=== PATIENT | female | born 1985 | race Caucasian/White ===

== ENCOUNTER 2018-03-30 00:02 | Inpatient (IN) | payer BC, OTHER ==
[2018-03-30] MEDS ORDERED: RINGER'S SOLUTION,LACTATED 1,000 ML IV ONE (00:06)
[2018-03-30] MEDS ORDERED: OXYTOCIN/DEXTROSE 5%-WATER 30 UNITS/500 ML BAG IV ONE (00:06)
[2018-03-30] MEDS ORDERED: ONDANSETRON HCL/PF 2 MG/ML VIAL IV PRN ×2 (00:06→17:00)
[2018-03-30] MEDS ORDERED: DEXTROSE 5%-LACTATED RINGERS 1,000 ML IV PRN (00:06)
[2018-03-30] MEDS: MISOPROSTOL 100 MCG TABLET VG PRN ×2 (00:48→04:53)
[2018-03-30] MEDS: VANCOMYCIN HCL 1 GM in DEXTROSE 5 % IN WATER 250 ML IV SCH ×4 (01:12→12:22)
[2018-03-30 02:04] LABS: Cocaine Ur Negative (NEGATIVE); Urine Barbiturate Negative (NEGATIVE); Urine Benzodiazepines Negative (NEGATIVE); Urine Opiates Negative (NEGATIVE); Urine PCP Negative (NEGATIVE); Urine THC Negative (NEGATIVE)
--- NOTE | 2018-03-30 09:13 | HP ---
Chief Complaint - Chief Complaint Date of Service: 03/30/18 Time of Service: 09:12 Chief Complaint: Induction of labor for GHTN History of Present Illness: 33 y at 39 weeks admitted for induction of labor due to GHTN. This complicated by anxiety/depression (no meds), h/o migraines, obesity, and GHTN. Rh negative Rubella immune GBS positive (clindamycin resistant) Medical History (Last Reviewed 03/30/18 @ 09:18 by Elan Duran DO) Anxiety Onset Date: ~2004 Depression Onset Date: ~2004 Migraine Obesity Onset Date: ~07/05/15 Rh negative, maternal Tear meniscus knee Onset Date: ~2004 Abnormal Pap smear of cervix Onset Date: ~2007 Amenorrhea Onset Date: ~07/05/15 History of wisdom tooth extraction Onset Date: ~10/2015 Spontaneous Onset Date: ~2010 Surgical History: Surgical History (Last Reviewed 03/30/18 @ 09:18 by Elan Duran DO) History of colposcopy Onset Date: ~2007 S/P ACL repair 2003, 2007, 11/2013-left knee Family History: Family History (Last Reviewed 03/30/18 @ 09:18 by Elan Duran DO) Father Cancer Colon CA, leukemia Epilepsy Mother Hypertension Fibromyalgia Grandmother CVA (cerebral vascular accident) Myocardial infarction Grandfather COPD (chronic obstructive pulmonary disease) Cancer prostate Grandmother Alzheimers disease Social History: Preferred Language [place] (Last Updated 03/24/18 @ 15:24 by Elan Duran DO) No Social History Section defined Review Of Systems (GEN) - Review of Systems Generalized/Overall Review: Present: No Symptoms Reported EENTM: Present: No Symptoms Reported Respiratory: Present: No Symptoms Reported Cardiac: Present: No Symptoms Reported Abdominal: Present: No Symptoms Reported Genitourinary: Present: No Symptoms Reported Musculoskeletal: Present: No Symptoms Reported Neurological: Present: No Symptoms Reported Skin: Present: No Symptoms Reported Endocrine: Present: No Symptoms Reported Allergies/Adverse Reactions: Allergies Allergy/AdvReac Type Severity Reaction Status Date / Time amoxicillin Allergy RASH Verified 03/25/18 13:12 carbinoxamine [From [facility]] AdvReac felt Verified 03/25/18 13:12 "loopy" house dust AdvReac upper Verified 03/25/18 13:12 respiratory mold AdvReac upper Verified 03/25/18 13:12 respiratory pseudoephedrine [From [facility]] AdvReac felt Verified 03/25/18 13:12 "loopy" Home Medications: HOME MEDICATIONS vitamin,calcium,srcilwfe-tliy-mvhfp acid tablet 1 tab PO DAILY 10/18/17 [Last Taken 03/29/18] acetaminophen 325 mg tablet 650 mg PO Q6H PRN tab 10/22/17 [Last Taken Unknown] breast pump See Dose Instructions .ROUTE .MEDSUPPLY #1 ea 03/10/18 [Last Taken Unknown] Exam - Exam Vital Signs: Vital Signs - Last Taken Temp 36.1 C 03/30/18 02:25 Pulse 86 03/30/18 02:25 Resp 18 03/30/18 02:25 BP 129/83 03/30/18 02:25 Pulse Ox 98 03/30/18 02:25 Constitutional: Present: Alert, Oriented x3, Cooperative ENT Exam: Present: hearing grossly normal Breasts: Present: Exam deferred Respiratory: Present: lungs clear, no respiratory distress Cardiovascular/Chest: Present: regular rate, rhythm Abdomen: Present: soft, nontender, no rebound tenderness, other - gravid /Rectal: Present: Other - cervix 05/09/ Extremity: Present: no pedal edema, no calf tenderness Skin Exam: Present: normal color, warm/dry, no cyanosis Neurologic: Present: alert, normal mood/affect, oriented x 3 Appearance: Present: appropriate appearance, appropriate insight Eye contact: Present: cooperative, good eye contact, normal speech Thoughts: Present: normal thought pattern Diagnostic Studies: Laboratory Results Urine Opiates Screen Negative (NEGATIVE) 03/30/18 01:30 Barbiturate Screen Negative (NEGATIVE) 03/30/18 01:30 Ur Phencyclidine Scrn Negative (NEGATIVE) 03/30/18 01:30 Urine Amphetamine Negative (NEGATIVE) 03/30/18 01:30 U Benzodiazepines Scrn Negative (NEGATIVE) 03/30/18 01:30 Urine Cocaine Screen Negative (NEGATIVE) 03/30/18 01:30 Urine Marijuana (THC) Negative (NEGATIVE) 03/30/18 01:30 Assessment/Plan - Assessment/Plan (1) Encounter for induction of labor Assessment: Admit for cytotec induction of labor. Epidural and pitocin PRN. IV Vancomycin for GBS. Problem: Acute (2) GBS carrier Problem: Acute (3) Gestational hypertension Problem: Acute Qualifiers: Trimester: third trimester Qualified Code(s): O13.3 - Gestational [-induced] hypertension without significant proteinuria, third trimester (4) Body mass index (BMI) of 40.1 to 44.9 in adult Problem: Acute
--- NOTE | 2018-03-30 09:16 | PN ---
Progess Note - Interim Date: 03/30/18 Time: 09:13 Narrative: 03/30/18 09:13 Patient rating her contractions mild Vital signs stable. Status post Cytotec 2 doses. FHT: 140 baseline, reassuring Contractions q 2-5 min Cervix: 1-2/25/-2, soft Impression: Intrauterine at 39 weeks induction of labor for gestational hypertension. GBS positive. Plan: We'll start on Pitocin. Continue IV vancomycin per GBS protocol.
--- NOTE | 2018-03-30 16:49 | PN ---
Progess Note - Interim Date: 03/30/18 Time: 16:46 Narrative: 03/30/18 16:46 Patient becoming more uncomfortable with contractions, requesting epidural Vital signs stable. Pitocin at 8 mu/min. FHT:150 baseline, reassuring with good accelerations and occasional mild variable Contractions q 2-4 min Cervix: 3/60/-2, AROM-clearImpression: Intrauterine at 39 weeks. Induction for gestational hypertension. GBS positive - status post 2 doses of IV vancomycin. Plan: Request epidural
[2018-03-30] MEDS ORDERED: NALOXONE HCL 1 MG/1 ML SYRG IV PRN (17:00)
[2018-03-30] MEDS ORDERED: fentaNYL CITRATE/PF 50 MCG/ML AMPUL IT SCH (17:00)
[2018-03-30] MEDS ORDERED: BUPIVACAINE HCL/0.9 % NACL/PF 250 ML EP PRN (17:00)
--- NOTE | 2018-03-30 17:32 | ANES ---
Anesthesia Pre Procedure Eval Vitals/Labs: Last Vital Signs Temp 36.1 C 03/30/18 02:25 Pulse 86 03/30/18 02:25 Resp 18 03/30/18 02:25 BP 129/83 03/30/18 02:25 Pulse Ox 98 03/30/18 02:25 HOME MEDICATIONS vitamin,calcium,blewbvjr-slje-lslsp acid tablet 1 tab PO DAILY 10/18/17 [Last Taken 03/29/18] acetaminophen 325 mg tablet 650 mg PO Q6H PRN tab 10/22/17 [Last Taken Unknown] breast pump See Dose Instructions .ROUTE .MEDSUPPLY #1 ea 03/10/18 [Last Taken Unknown] Allergies/Adverse Reactions: Allergies Allergy/AdvReac Type Severity Reaction Status Date / Time amoxicillin Allergy RASH Verified 03/25/18 13:12 carbinoxamine [From [facility]] AdvReac felt Verified 03/25/18 13:12 "loopy" house dust AdvReac upper Verified 03/25/18 13:12 respiratory mold AdvReac upper Verified 03/25/18 13:12 respiratory pseudoephedrine [From [facility]] AdvReac felt Verified 03/25/18 13:12 "loopy" - Planned Procedure Planned Procedure: ELECTIVE INDUCTION Medication List Reviewed:: Yes Allergies Verified: Yes Medical History (Last Reviewed 03/30/18 @ 17:31 by Titi Alonso CRNA) Anxiety Onset Date: ~2004 Depression Onset Date: ~2004 Migraine Obesity Onset Date: ~07/05/15 Rh negative, maternal Tear meniscus knee Onset Date: ~2004 Abnormal Pap smear of cervix Onset Date: ~2007 Amenorrhea Onset Date: ~07/05/15 History of wisdom tooth extraction Onset Date: ~10/2015 Spontaneous Onset Date: ~2010 Surgical History (Last Reviewed 03/30/18 @ 17:31 by Titi Alonso CRNA) History of colposcopy Onset Date: ~2007 S/P ACL repair 2003, 2007, 11/2013-left knee Family History (Last Reviewed 03/30/18 @ 17:31 by Titi Alonso CRNA) Father Cancer Colon CA, leukemia Epilepsy Mother Hypertension Fibromyalgia Grandmother CVA (cerebral vascular accident) Myocardial infarction Grandfather COPD (chronic obstructive pulmonary disease) Cancer prostate Grandmother Alzheimers disease - Family Anesthesia History Family History:: no untoward family reactions to anesthesia - Airway/Neck/Teeth Within Normal Limits:: Yes Teeth Condition: intact Neck Exam: full range of motion Mallampatti Score: 2 Thyromental (T-M) distance: > 6 cm Mandibulo Hyoid distance: > 3 cm - Respiratory Respiratory Physical: lungs clear Smoking Status: Never smoker Sleep Apnea currently treated: No Sleep Apnea by current assessment: No - Cardiovascular Tolerate Activity: Good Heart Sounds: S1 & S2, Regular - Anesthesia Assessment and Plan ASA Class: PS, II, E Anesthesia Type Plan: Epidural
--- NOTE | 2018-03-30 17:33 | ANES ---
Post Anesthesia Assessment - Vital Signs Vitals: Last Vital Signs Temp 36.1 C 03/30/18 02:25 Pulse 86 03/30/18 02:25 Resp 18 03/30/18 02:25 BP 129/83 03/30/18 02:25 Pulse Ox 98 03/30/18 02:25 Airway Patency: Normal - Mental Status Level Of Consciousness: Awake - Pain Level Pain Score: 2 - N/V Assessment Nausea/Vomiting Presence: None Dehydration:: No
--- NOTE | 2018-03-30 17:33 | ANES ---
Post Anesthesia Discharge - Transfer of Care Transfer of Care handoff given to nurse: Yes - Anesthesia Post Op Note Anesthesia Post Op Note: care transferred to ob RN
--- NOTE | 2018-03-30 17:35 | ANES ---
Anesthesia Procedure Note Procedure Note: ANESTHESIA PROCEDURE NOTE Date of Procedure: [] 03/30/2018 Time of procedure:[]. 1710 Performed by: Spenser Alonso CRNA Fans Clerk: None. Preprocedure diagnosis: Active labor. Post procedure diagnosis: Same. Procedure: Insertion of labor epidural. Indications: The patient is a [33] -year-old [Prima para] female in active labor requesting labor epidural for pain management. Findings: See below. Details of the procedure: The patient was placed in a sitting position. Back was prepped with DuraPrep. Patient was then draped in a sterile fashion. Lidocaine 1% was infiltrated to the skin and subcutaneous tissues at the level of the L3 4 interspace. The epidural space was identified using a 18-gauge Tuohy needle with ocnl-rd-xcthvctbab technique. 20 mcg fentanyl was given intrathecally using a 27 ga. spinal needle. Epidural catheter was inserted without difficulty. Negative test dose was elicited using 5 mL of 1.5% preservative-free lidocaine plus epinephrine 1 200,000. The epidural catheter was then taped and secured in place. EBL: Minimal. Fluids: N/A. Specimen: N/A. Post procedure condition: The patient tolerated the procedure well. No complications were noted. Thank you for this consultation. Mullen CRNA
[2018-03-31] MEDS: VANCOMYCIN HCL 1 GM in DEXTROSE 5 % IN WATER 250 ML IV SCH ×2 (00:51)
--- NOTE | 2018-03-31 04:30 | OR ---
Operative Report - Dictated Report Narrative: Spontaneous vaginal delivery viable male at 0400 on 03/31/2018 with Apgars 9 and 9, weighing 3810 g in MAGUI position with tight nuchal cord 1. Cord clamping delayed approximately 1 minute Placenta delivered complete, intact, with three vessel cord Estimated blood loss: less than 50 ml Anesthesia: epidural Lacerations: 2cm first-degree vaginal laceration repaired with 3-0 Vicryl Rapide due to excess vascular bleeding
--- NOTE | 2018-03-31 04:32 | PN ---
Progess Note - Interim Date: 03/31/18 Time: 04:31 History for MU Definition: * The number of deliveries resulting in a live the patient experienced prior to current hospitalization * The previous delivery of live twins or any live multiple gestation is considered one live event. *If primagravida or nulliparous is documented select zero for the number of previous live births. Live Events: 0
[2018-03-31] MEDS ORDERED: oxyCODONE HCL/ACETAMINOPHEN 1 TAB TABLET PO PRN ×2 (10:03)
[2018-03-31] MEDS ORDERED: HYDROCORTISONE 30 APPL TUBE TP PRN (10:03)
[2018-03-31] MEDS ORDERED: SENNOSIDES 8.6 MG TABLET PO PRN (10:03)
[2018-03-31] MEDS ORDERED: GLYCERIN/WITCH HAZEL LEAF 40 APPL BOX TP PRN (10:03)
[2018-03-31] MEDS ORDERED: BENZOCAINE/MENTHOL 81 SPRAY CAN TP PRN (10:03)
[2018-03-31] MEDS ORDERED: OXYTOCIN/DEXTROSE 5%-WATER 30 UNITS/500 ML BAG IV ONE (10:03)
[2018-03-31] MEDS ORDERED: BISACODYL 10 MG SUPP.RECT RC PRN (10:03)
[2018-03-31] MEDS: DOCUSATE SODIUM 100 MG CAPSULE PO SCH ×2 (10:27→20:24)
[2018-03-31] MEDS: IBUPROFEN 800 MG TABLET PO PRN ×2 (10:31→17:42)
[2018-03-31] MEDS ORDERED: RHO(D) IMMUNE GLOBULIN 1,500 UNIT SYRINGE IM ONE ×2 (21:06→22:14)
[2018-04-01] MEDS: DOCUSATE SODIUM 100 MG CAPSULE PO SCH ×2 (08:23→20:20)
--- NOTE | 2018-04-01 18:53 | PN ---
Subjective - Date and Time Seen Date: 04/01/18 Time: 18:53 Objective - Vitals Vitals: Last Vital Signs Temp 36.4 C 04/01/18 14:21 Pulse 90 04/01/18 14:21 Resp 16 04/01/18 14:21 BP 128/74 04/01/18 14:21 Pulse Ox 97 04/01/18 14:21 Patient denies complaints. Lochia wnl Abdomen - soft, nontender Uterus - firm, at umbilicus - 1 No calf tenderness Impression: day #1 - s/p spontaneous vaginal delivery. Plan: Continue routine care Cauti Physician Documentation - Urinary Catheter Management Urethral (Hernandez) Date of Insertion: 03/30/18 Time of Insertion: 19:00 Assessment/Plan - Problems/Diagnosis (1) Encounter for induction of labor Problem: Acute (2) GBS carrier Problem: Acute (3) Gestational hypertension Problem: Acute Qualifiers: Trimester: third trimester Qualified Code(s): O13.3 - Gestational [-induced] hypertension without significant proteinuria, third trimester (4) Body mass index (BMI) of 40.1 to 44.9 in adult Problem: Acute
[2018-04-02 06:58] VITALS: BP 126/67
--- NOTE | 2018-04-02 09:22 | PN ---
Subjective - Date and Time Seen Date: 04/02/18 Time: 09:21 Objective - Vitals Vitals: Last Vital Signs Temp 36.6 C 04/02/18 06:54 Pulse 79 04/02/18 06:54 Resp 16 04/02/18 06:54 BP 126/67 04/02/18 06:54 Pulse Ox 96 04/02/18 06:54 Patient denies complaints. Lochia wnl Abdomen - soft, nontender Uterus - firm, at umbilicus - 2 No calf tenderness Impression: day #2 - s/p spontaneous vaginal delivery. Plan: Routine discharge instructions Cauti Physician Documentation - Urinary Catheter Management Urethral (Hernandez) Date of Insertion: 03/30/18 Time of Insertion: 19:00 Assessment/Plan - Problems/Diagnosis (1) Encounter for induction of labor Problem: Acute (2) GBS carrier Problem: Acute (3) Gestational hypertension Problem: Acute Qualifiers: Trimester: third trimester Qualified Code(s): O13.3 - Gestational [-induced] hypertension without significant proteinuria, third trimester (4) Body mass index (BMI) of 40.1 to 44.9 in adult Problem: Acute
[2018-04-02] MEDS: DOCUSATE SODIUM 100 MG CAPSULE PO SCH (14:09)
== END 2018-04-02 14:10 | disposition home or self-care (01) | DRG 806 ==
LOC: OB 00:02 → MS 03-31 14:26
PROVIDERS: ADMIT Obstetrics & Gynecology; ATTEND Obstetrics & Gynecology
CPT/HCPCS: 59025; 80307; 85460; G0479; J2790

== ENCOUNTER 2020-05-27 04:39 | Inpatient (IN) ==
[2020-05-27] MEDS ORDERED: MISOPROSTOL 100 MCG TABLET VG PRN (06:23)
[2020-05-27] MEDS ORDERED: CLINDAMYCIN IN 0.9 % SOD CHLOR 900 MG/50 ML BAG IV ONE (06:23)
[2020-05-27] MEDS ORDERED: OXYTOCIN/0.9 % SODIUM CHLORIDE 30 UNITS/500 ML BAG IV ONE (06:23)
[2020-05-27] MEDS ORDERED: RINGER'S SOLUTION,LACTATED 1,000 ML IV ONE (06:23)
[2020-05-27] MEDS ORDERED: ONDANSETRON 4 MG TAB.RAPDIS PO PRN (06:23)
[2020-05-27] MEDS ORDERED: DEXTROSE 5%-LACTATED RINGERS 1,000 ML IV PRN (06:23)
--- NOTE | 2020-05-27 09:36 | HP ---
Chief Complaint - Chief Complaint Date of Service: 05/27/20 Time of Service: 08:30 Chief Complaint: LOF and contractions History of Present Illness: 35 yo at 40 wks presents to L&D complaining of gross LOF x 2 and increasing frequency of painful contractions. This complicated by BMI 41+, COVID-19 (02/14/20), Hand/foot/mouth dz (01/02), and h/o GHTN. Rh negative Rubella Immune GBS positive Medical History (Last Reviewed 05/27/20 @ 09:32 by Elan Duran DO) History of gestational hypertension (Chronic) Anxiety and depression (Inactive) Migraine Onset Date: Unknown Obesity Onset Date: 07/05/15 Rh negative, maternal Onset Date: Unknown Abnormal Pap smear of cervix Onset Date: ~07/23/182007; 07/23/18-LSIL, +HR HPV Amenorrhea Onset Date: 07/05/15 Spontaneous Onset Date: ~2010 Tear meniscus knee Onset Date: ~2004 Surgical History: Surgical History (Last Reviewed 05/27/20 @ 09:32 by Elan Duran DO) History of colposcopy Onset Date: ~2007 History of wisdom tooth extraction Onset Date: ~10/2015 S/P ACL repair Onset Date: Unknown 2003, 2007, 11/2013-left knee Family History: Family History (Last Reviewed 05/27/20 @ 09:32 by Elan Duran DO) Father Cancer Colon CA, leukemia Epilepsy Mother Hypertension Fibromyalgia Grandmother CVA (cerebral vascular accident) Myocardial infarction Grandfather COPD (chronic obstructive pulmonary disease) Cancer prostate Grandmother Alzheimers disease Social History: (Last Reviewed 05/27/20 @ 09:32 by Elan Duran DO) Social History: Marital status: Single current occupational status: employed 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 Highest level of school completed/degree received: Master's degree Service: No Tobacco: Smoking Status: Never smoker Alcohol: alcohol intake: former alcohol intake frequency: holiday/special occasion details: No alcohol since +UPT Substance Use: substance use type: does not use Dietary Habits: caffeine: Yes caffeine comment: 20oz daily Type: carbonated beverages daily servings of milk/calcium: 0-1 Review Of Systems (GEN) - Review of Systems Generalized/Overall Review: Present: No Symptoms Reported EENTM: Present: No Symptoms Reported Respiratory: Present: No Symptoms Reported Cardiac: Present: No Symptoms Reported Abdominal: Present: Abdominal Pain - contractions Genitourinary: Present: Other - LOF Musculoskeletal: Present: No Symptoms Reported Neurological: Present: No Symptoms Reported Skin: Present: No Symptoms Reported Endocrine: Present: No Symptoms Reported Allergies/Adverse Reactions: Allergies Allergy/AdvReac Type Severity Reaction Status Date / Time amoxicillin Allergy RASH Verified 05/27/20 05:40 carbinoxamine [From [facility]] AdvReac felt Verified 05/27/20 05:40 "loopy" house dust AdvReac upper Verified 05/27/20 05:40 respiratory mold AdvReac upper Verified 05/27/20 05:40 respiratory pseudoephedrine [From [facility]] AdvReac felt Verified 05/27/20 05:40 "loopy" Home Medications: HOME MEDICATIONS prenat.vits,izabella,efr-eedv-hjzip 1 tab PO DAILY 10/05/19 [Last Taken Unknown] Exam - Exam Vital Signs: Vital Signs - Last Taken Temp 36.6 C 05/27/20 07:18 Pulse 80 05/27/20 07:18 Resp 20 05/27/20 07:18 BP 120/79 05/27/20 07:18 Pulse Ox 100 05/27/20 07:18 Constitutional: Present: Alert, Oriented x3, Cooperative ENT Exam: Present: hearing grossly normal Neck: Present: non-tender, supple. Absent: thyromegaly Breasts: Present: Exam deferred Respiratory: Present: lungs clear, no respiratory distress Cardiovascular/Chest: Present: normal peripheral pulses, regular rate, rhythm Abdomen: Present: soft, nontender, no rebound tenderness, other - gravid /Rectal: Present: Other - Cervix - 05/14/-3, nitrazine swab negative, no pooling, BOW palpable Extremity: Present: no pedal edema, no calf tenderness Skin Exam: Present: normal color, warm/dry, no cyanosis Neurologic: Present: alert, normal mood/affect, oriented x 3 Appearance: Present: appropriate appearance, appropriate insight Eye contact: Present: cooperative, good eye contact Thoughts: Present: normal thought pattern, normal mood /affect Assessment/Plan - Procedures Results: Admit for augmentation of labor. IV Clindamycin per GBS protocol. Pitocin and Epidural PRN. - Assessment/Plan (1) History of gestational hypertension Problem: Chronic (2) GBS carrier Problem: Acute (3) Body mass index (BMI) of 40.1 to 44.9 in adult Problem: Chronic
[2020-05-27] MEDS: CLINDAMYCIN IN 0.9 % SOD CHLOR 900 MG/50 ML BAG IV SCH ×2 (14:30→22:23)
[2020-05-27] MEDS ORDERED: ACETAMINOPHEN 500 MG TABLET PO PRN (19:49)
[2020-05-27] MEDS ORDERED: ONDANSETRON HCL/PF 2 MG/ML VIAL IV PRN (23:09)
[2020-05-27] MEDS ORDERED: BUPIVACAINE HCL/0.9 % NACL/PF 250 ML EP PRN (23:09)
[2020-05-27] MEDS ORDERED: NALOXONE HCL 1 MG/1 ML SYRG IV PRN (23:09)
[2020-05-27] MEDS ORDERED: fentaNYL CITRATE/PF 50 MCG/ML AMPUL IT SCH (23:15)
--- NOTE | 2020-05-27 23:21 | ANES ---
Anesthesia Pre Procedure Eval Vitals/Labs: Last Vital Signs Temp 36.5 C 05/27/20 23:16 Pulse 82 05/27/20 23:16 Resp 20 05/27/20 23:16 BP 149/82 H 05/27/20 23:16 Pulse Ox 100 05/27/20 07:18 HOME MEDICATIONS Vits96/Iron Fum/Folic [ S] 1 tab PO DAILY 05/27/20 [Last Taken Unknown] Allergies/Adverse Reactions: Allergies Allergy/AdvReac Type Severity Reaction Status Date / Time amoxicillin Allergy RASH Verified 05/27/20 05:40 carbinoxamine [From [facility]] AdvReac felt Verified 05/27/20 05:40 "loopy" house dust AdvReac upper Verified 05/27/20 05:40 respiratory mold AdvReac upper Verified 05/27/20 05:40 respiratory pseudoephedrine [From [facility]] AdvReac felt Verified 05/27/20 05:40 "loopy" - Planned Procedure Planned Procedure: room 201 Medication List Reviewed:: Yes Allergies Verified: Yes Medical History (Last Reviewed 05/27/20 @ 23:19 by Balbir Moreno CRNA) History of gestational hypertension (Chronic) Anxiety and depression (Inactive) Migraine Onset Date: Unknown Obesity Onset Date: 07/05/15 Rh negative, maternal Onset Date: Unknown Abnormal Pap smear of cervix Onset Date: ~07/23/182007; 07/23/18-LSIL, +HR HPV Amenorrhea Onset Date: 07/05/15 Spontaneous Onset Date: ~2010 Tear meniscus knee Onset Date: ~2004 Surgical History (Last Reviewed 05/27/20 @ 23:19 by Balbir Moreno CRNA) History of colposcopy Onset Date: ~2007 History of wisdom tooth extraction Onset Date: ~10/2015 S/P ACL repair Onset Date: Unknown 2003, 2007, 11/2013-left knee Family History (Last Reviewed 05/27/20 @ 23:19 by Balbir Moreno CRNA) Father Cancer Colon CA, leukemia Epilepsy Mother Hypertension Fibromyalgia Grandmother CVA (cerebral vascular accident) Myocardial infarction Grandfather COPD (chronic obstructive pulmonary disease) Cancer prostate Grandmother Alzheimers disease - Family Anesthesia History Family History:: no untoward family reactions to anesthesia, no familial bleeding tendencies, no family history of clotting disorders, no family history of premature - Airway/Neck/Teeth Within Normal Limits:: Yes Teeth Condition: intact Neck Exam: full range of motion Mallampatti Score: 2 Thyromental (T-M) distance: > 6 cm Mandibulo Hyoid distance: > 3 cm - Respiratory Respiratory Physical: lungs clear Smoking Status: Never smoker Sleep Apnea currently treated: No Sleep Apnea by current assessment: No - Cardiovascular Tolerate Activity: Fair Heart Sounds: S1 & S2, Regular - Gastrointestinal NPO since: pm - Anesthesia Assessment and Plan ASA Class: PS, II, E Anesthesia Type Plan: Epidural - CSE for labor analgesia
--- NOTE | 2020-05-27 23:38 | ANES ---
Post Anesthesia Discharge - Transfer of Care Transfer of Care handoff given to nurse: Yes - Discharge from PACU Discharge from PACU when meets criteria: Yes - Comfortable post CSE
--- NOTE | 2020-05-27 23:40 | ANES ---
Anesthesia Procedure Note Procedure Note: ANESTHESIA PROCEDURE NOTE Date of Procedure: 05/27/2020 Time of procedure: 2319. Performed by: RAFIA Hoskins CRNA, MSN Preprocedure diagnosis: Active labor, labor pain. Post procedure diagnosis: Same. Procedure:Epidural for labor analgesia L3-4. Indications: Labor pain. Findings: See below. Details of the procedure: The patient was placed on the side of the bed in sitting positionand prepped with DuraPrep then draped in a sterile fashion. Lidocaine 1% was infiltrated to the skin and subcutaneous tissues at the level of the L3-4 interspace. An 18-gauge Touhy needle was used to approach the epidural space with loss of resistance technique. Once loss of resistance was achieved a 27-gauge spinal needle was passed through the epidural needle and CSF was contacted. After CSF returned, 20 mcg of fentanyl was injected in the spinal needle was removed the epidural catheter was then threaded approximately 4 cm in the epidural needle was removed. The catheter was taped in place and after careful aspiration 3 mL of 1.5% lidocaine with 1-200,000 epinephrine was injected without change in maternal heart rate or sensorium. . EBL: Minimal. Fluids: N/A. Specimen: N/A. Post procedure condition: The patient tolerated the procedure well with good relief. No complications were noted. Thank you for this consultation. Balbir Moreno CRNA, RAFIA, MSN
--- NOTE | 2020-05-27 23:49 | ANES ---
Post Anesthesia Assessment - Vital Signs Vitals: Last Vital Signs Temp 36.5 C 05/27/20 23:16 Pulse 82 05/27/20 23:16 Resp 20 05/27/20 23:16 BP 149/82 H 05/27/20 23:16 Pulse Ox 100 05/27/20 07:18 Airway Patency: Normal - Mental Status Level Of Consciousness: Awake, Alert, Appropriate - Pain Level Pain Score: 0 - N/V Assessment Nausea/Vomiting Presence: None Dehydration:: No
--- NOTE | 2020-05-28 03:59 | PN ---
Progess Note - Interim Date: 05/28/20 Time: 03:58 Narrative: 05/28/20 03:58 Spontaneous vaginal delivery of vigorously crying viable female at 0330 on 05/28/2020 with Apgars 9 and 9, weighing 3807 g in MAGUI position. Cord clamping delayed approximately 1 minute Placenta delivered complete, intact, with three vessel cord Estimated blood loss: 100 mL Anesthesia: Epidural Lacerations: None History for MU History for MU Definition: * The number of deliveries resulting in a live the patient experienced prior to current hospitalization * The previous delivery of live twins or any live multiple gestation is considered one live event. *If primagravida or nulliparous is documented select zero for the number of previous live births. Live Events: Live Events: 1
[2020-05-28] MEDS ORDERED: HYDROCORTISONE 30 APPL TUBE TP PRN (04:00)
[2020-05-28] MEDS ORDERED: BENZOCAINE/MENTHOL 81 SPRAY CAN TP PRN (04:00)
[2020-05-28] MEDS ORDERED: IBUPROFEN 800 MG TABLET PO PRN (04:00)
[2020-05-28] MEDS ORDERED: SENNOSIDES 8.6 MG TABLET PO PRN (04:00)
[2020-05-28] MEDS ORDERED: BISACODYL 10 MG SUPP.RECT RC PRN (04:00)
[2020-05-28] MEDS ORDERED: OXYTOCIN/0.9 % SODIUM CHLORIDE 30 UNITS/500 ML BAG IV ONE (04:00)
[2020-05-28] MEDS ORDERED: GLYCERIN/WITCH HAZEL LEAF 40 APPL BOX TP PRN (04:00)
[2020-05-28] MEDS: IBUPROFEN 800 MG TABLET PO PRN (05:41)
[2020-05-28] MEDS ORDERED: RHO(D) IMMUNE GLOBULIN 1,500 UNIT SYRINGE IM ONE ×2 (09:00→14:41)
[2020-05-28] MEDS: PRENATAL VITS96/IRON FUM/FOLIC 1 TAB TABLET PO SCH (10:51)
[2020-05-28] MEDS: DOCUSATE SODIUM 100 MG CAPSULE PO SCH ×2 (10:51→21:26)
[2020-05-28] MEDS: oxyCODONE HCL/ACETAMINOPHEN 1 TAB TABLET PO PRN ×3 (10:54→18:35)
[2020-05-29] MEDS: IBUPROFEN 800 MG TABLET PO PRN (08:21)
[2020-05-29] MEDS: oxyCODONE HCL/ACETAMINOPHEN 1 TAB TABLET PO PRN (08:21)
[2020-05-29] MEDS: PRENATAL VITS96/IRON FUM/FOLIC 1 TAB TABLET PO SCH (08:21)
[2020-05-29] MEDS: DOCUSATE SODIUM 100 MG CAPSULE PO SCH (08:21)
[2020-05-29 08:46] VITALS: BP 126/86
--- NOTE | 2020-05-29 09:31 | OR ---
Operative Report - Dictated Report Narrative: COMPUTER DID NOT SAVE NOTE FROM YESTERDAY. THIS IS A REDO. Spontaneous vaginal delivery of vigorously crying viable female at 0330 with Apgars 9 and 9, weighing 3807 g and MAGUI position. Cord clamping delayed approximately 1 minute Placenta delivered complete, intact, with three vessel cord Estimated blood loss: 100 mL Anesthesia: Epidural Lacerations: None History for MU History for MU Definition: * The number of deliveries resulting in a live the patient experienced prior to current hospitalization * The previous delivery of live twins or any live multiple gestation is considered one live event. *If primagravida or nulliparous is documented select zero for the number of previous live births. Live Events: Live Events: 1
--- NOTE | 2020-05-29 09:45 | DS ---
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 Labor was uncomplicated. Patient was GBS carrier and received 3 doses of IV clindamycin prior to delivery. Approximately 4 hours after delivery patient got up to go to the bathroom but her her legs were still weak from the epidural and she fell to her knees. No pain or injuries noted. Patient has been ambulating and doing fine since then. Discharge Location: Home Disposition: Home self-care Condition: Good Activity on Discharge:: Activity as tolerated, Pelvic Rest Complete Home Medications List: Complete Home Medication List: Vits96/Iron Fum/Folic [ S] 1 tab PO DAILY 05/27/20 - Plan Discharge to:: Home Follow up in office in:: 3-4 weeks - Information Weight (Grams): 3,807 Infant Sex: Female Score 1 min: 9 Score 5 min: 9 Complications: None
--- NOTE | 2020-05-29 09:52 | PN ---
Subjective - Date and Time Seen Date: 05/29/20 Time: 09:51 Objective - Vitals Vitals: Last Vital Signs Temp 36.7 C 05/29/20 08:42 Pulse 84 05/29/20 08:42 Resp 18 05/29/20 08:42 BP 126/86 05/29/20 08:42 Pulse Ox 99 05/29/20 08:42 Patient denies complaints. Breast-feeding Lochia wnl abdomen - soft, nontender Uterus -firm, at umbilicus - 1 No calf tenderness Impression: day #1 - s/p spontaneous vaginal delivery. Desires early discharge. Plan: Continue routine care. Routine discharge instructions. 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
== END 2020-05-29 13:10 | disposition home or self-care (01) | DRG 806 ==
LOC: OBCLINIC 04:39 → OB 06:17
PROVIDERS: ADMIT Obstetrics & Gynecology; ATTEND Obstetrics & Gynecology